=== PATIENT | female | born 1995 | race Hispanic/Latino ===

== ENCOUNTER 2019-04-15 17:32 | Inpatient (IN) | payer MEDICAID, OTHER ==
[~2019-04-15] VITALS: Ht 170.2 cm; Wt 89.3 kg
[2019-04-15 18:42] LABS: BASOPHILS % (AUTO) 0.6 % (0.0-5.0); LYMPHOCYTES % (AUTO) 8.3 % (21.0-51.0); MEAN CORPUSCULAR HEMOGLOBIN 29.3 pg (27.0-33.0); MEAN CORPUSCULAR HGB CONC 34.9 g/dL (32.0-36.0); NEUTROPHILS % (AUTO) 83.1 % (40.0-77.0); NUCLEATED RED BLOOD CELLS 0.1 % (0.0-0.19); PLATELET COUNT (AUTO) 207 K/uL (130-400); RED BLOOD CELL COUNT(AUTO) 4.29 MIL/uL (4.00-5.50); RED CELL DISTRIBUTION WIDTH 12.9 % (11.0-15.5)
[2019-04-15 18:43] LABS: APPEARANCE,URINE Clear (CLEAR); BILIRUBIN,URINE Small (NEGATIVE); COLOR,URINE Dark Yellow (YELLOW); GLUCOSE, URINE (UA) Negative (NEGATIVE); KETONES,URINE Trace mg/dL (NEGATIVE); LEUKOCYTE ESTERASE ,URINE Small (NEGATIVE); NITRATE,URINE Negative (NEGATIVE); OCCULT BLOOD,URINE Negative (NEGATIVE); PROTEIN,URINE POS 2+ mg/dL (NEGATIVE)
[2019-04-15] MEDS ORDERED: SODIUM CHLORIDE 0.9% 1000ML 1,000 ML IV ONE ×2 (18:51→19:12)
[2019-04-15] MEDS ORDERED: ONDANSETRON HCL 4 MG/2 ML VIAL ONE (18:51)
[2019-04-15 18:52] LABS: HCG,QUAL RESULT NEGATIVE (NEGATIVE)
[2019-04-15] MEDS ORDERED: KETOROLAC TROMETHAMINE 30MG/ML ONE (18:52)
[2019-04-15 18:58] LABS: AMPHET/METH SCREEN,URINE NEGATIVE (NEGATIVE); BARBITURATE SCREEN, URINE NEGATIVE (NEGATIVE); BENZODIAZEPINES SCREEN,URINE NEGATIVE (NEGATIVE); CANNABINOID SCREEN,URINE NEGATIVE (NEGATIVE); COCAINE SCREEN,URINE NEGATIVE (NEGATIVE); OPIATE SCREEN,URINE NEGATIVE (NEGATIVE); PHENCYCLIDINE SCREEN,URINE NEGATIVE (NEGATIVE)
[2019-04-15] MEDS ORDERED: CEFTRIAXONE SODIUM 1 GM ONE (19:12)
[2019-04-15 19:18] LABS: CREATININE 0.8 mg/dL (0.5-1.5); POTASSIUM 4.2 mmol/L (3.5-5.1)
[2019-04-15 19:23] LABS: ALBUMIN 3.1 g/dL (3.5-5.0); BILIRUBIN,TOTAL 0.9 mg/dL (0.2-1.0); TOTAL PROTEIN, SERUM 8.2 g/dL (6.0-8.3)
[2019-04-15 19:25] LABS: BACTERIA,URINE Few /HPF (None Seen); RBC,URINE 0-1 /HPF (0-1); SQUAMOUS EPITHELIAL CELL,UR Few /HPF (0-2)
[2019-04-15 19:26] LABS: TRANSITIONAL EPI CELLS,URINE Rare /HPF (None Seen)
[2019-04-15] MEDS ORDERED: IOHEXOL-350 75 ML VIAL IV ONE (19:33)
[2019-04-15 20:15] LABS: INR 0.97 (0.85-1.15); PARTIAL THROMBOPLASTIN TIME 29.9 SEC (26.3-35.5); PROTHROMBIN TIME 10.2 SEC (9.6-11.6)
[2019-04-15] MEDS ORDERED: ONDANSETRON HCL 4 MG/2 ML VIAL IVP PRN (21:15)
[2019-04-15] MEDS ORDERED: CEFTRIAXONE SODIUM 1 GM IVP SCH (21:15)
[2019-04-15] MEDS: SODIUM CHLORIDE 0.9% 1000ML 1,000 ML IV SCH (21:15)
[2019-04-15] MEDS ORDERED: KETOROLAC TROMETHAMINE 15MG/ML IV PRN (21:15)
[2019-04-15 23:00] VITALS: BP 122/71
[2019-04-16 04:00] VITALS: BP 108/61
[2019-04-16 05:37] LABS: BASOPHILS % (AUTO) 0.3 % (0.0-5.0); EOSINOPHILS % (AUTO) 1.1 % (0.0-8.0); HEMATOCRIT 31.4 % (36-48); LYMPHOCYTES % (AUTO) 10.6 % (21.0-51.0); MEAN CORPUSCULAR HEMOGLOBIN 29.4 pg (27.0-33.0); MEAN CORPUSCULAR HGB CONC 34.6 g/dL (32.0-36.0); MEAN CORPUSCULAR VOLUME 85.2 fL (79-99); MONOCYTES % (AUTO) 9.2 % (3.0-13.0); NEUTROPHILS % (AUTO) 78.8 % (40.0-77.0); NUCLEATED RED BLOOD CELLS 0.1 % (0.0-0.19); PLATELET COUNT (AUTO) 187 K/uL (130-400); RED BLOOD CELL COUNT(AUTO) 3.69 MIL/uL (4.00-5.50); RED CELL DISTRIBUTION WIDTH 12.9 % (11.0-15.5); WHITE BLOOD COUNT (AUTO) 14.3 K/uL (4.8-10.8)
[2019-04-16 05:52] LABS: ALBUMIN 2.3 g/dL (3.5-5.0); BILIRUBIN,TOTAL 0.8 mg/dL (0.2-1.0); CREATININE 0.8 mg/dL (0.5-1.5); POTASSIUM 3.8 mmol/L (3.5-5.1); TOTAL PROTEIN, SERUM 6.4 g/dL (6.0-8.3)
[2019-04-16 08:00] VITALS: BP 103/66
[2019-04-16] MEDS: FAMOTIDINE/PF 20 MG/2 ML VIAL IV SCH ×2 (08:46→22:03)
[2019-04-16] MEDS: SODIUM CHLORIDE 0.9% 1000ML 1,000 ML IV SCH (08:46)
[2019-04-16] MEDS ORDERED: ORAL CONTRACEPTIVE PO (10:52)
[2019-04-16 16:57] VITALS: BP 111/70
--- NOTE | 2019-04-16 17:15 | NUR ---
INITIAL MET W PT AND SISTER IN LAW. PT RECENTLY MOVED TO [place] WITH HER YOUNG SON, LIVES ON PROPERTY OF HER BROTHER, FAMILY CLOSE BY, INDP NO DME, NO CLINIC, UNINSURED, [employer] PENDING Addendum: 04/16/19 at 1859 by SHIRA SHANNON RN CM Amended: Links added.
[2019-04-16] MEDS ORDERED: CEFTRIAXONE SODIUM 1 GM IVP SCH (17:30)
[2019-04-16] MEDS: CEFTRIAXONE SODIUM 1 GM IVP SCH ×2 (18:32→22:02)
[2019-04-16 20:00] VITALS: BP 113/75
[2019-04-17] VITALS: BP 107/63
[2019-04-17 04:00] VITALS: BP 117/75
[2019-04-17 05:44] LABS: BASOPHILS % (AUTO) 0.3 % (0.0-5.0); EOSINOPHILS % (AUTO) 4.4 % (0.0-8.0); HEMATOCRIT 30.4 % (36-48); LYMPHOCYTES % (AUTO) 14.6 % (21.0-51.0); MEAN CORPUSCULAR HEMOGLOBIN 29.4 pg (27.0-33.0); MEAN CORPUSCULAR HGB CONC 34.8 g/dL (32.0-36.0); MEAN CORPUSCULAR VOLUME 84.6 fL (79-99); MONOCYTES % (AUTO) 7.5 % (3.0-13.0); NEUTROPHILS % (AUTO) 73.2 % (40.0-77.0); PLATELET COUNT (AUTO) 245 K/uL (130-400); RED BLOOD CELL COUNT(AUTO) 3.59 MIL/uL (4.00-5.50); RED CELL DISTRIBUTION WIDTH 12.8 % (11.0-15.5); WHITE BLOOD COUNT (AUTO) 12.7 K/uL (4.8-10.8)
[2019-04-17 05:55] LABS: CREATININE 0.8 mg/dL (0.5-1.5); POTASSIUM 3.7 mmol/L (3.5-5.1)
[2019-04-17 08:00] VITALS: BP 135/78
[2019-04-17] MEDS: CEFTRIAXONE SODIUM 1 GM IVP SCH (08:48)
[2019-04-17] MEDS: FAMOTIDINE/PF 20 MG/2 ML VIAL IV SCH (08:48)
[2019-04-17] MEDS ORDERED: ASCORBIC ACID 500 MG TAB PO SCH (09:15)
[2019-04-17] MEDS ORDERED: FERROUS SULFATE 325 MG TABLET.DR PO SCH (09:15)
[2019-04-17] MEDS ORDERED: LEVO500T2 PO (10:41)
[2019-04-17] MEDS ORDERED: FERR324T4 PO (10:41)
[2019-04-17] MEDS ORDERED: ASCO500T9 PO (10:41)
[2019-04-17] MEDS ORDERED: IBUP-1493 PO (10:41)
[2019-04-17 12:10] VITALS: BP 119/70
--- NOTE | 2019-04-17 14:35 | NUR ---
PATIENT GIVEN DISCHARGE INSTRUCTION AND VERBALIZED UNDERSTANDING ASKING TO SPEAK TO CASE MANAGEMENT FOR AIDE WITH HER MEDICATIONS . [facility] COMING UP TO TALK TO PATIENT. IV REMOVED AND MEDICATIONS REVIEWED. DISCHARGE PENDING VISIT FROM [facility]. QUESTIONS ABOUT COST AND PAYMENT
--- NOTE | 2019-04-17 15:48 | NUR ---
RD NOTIFICATION DX: ACUTE PYELONEPHRITIS. HX: ASTHMA, SMOKES CIGARETTES 5X/D. DIET: REGULAR. PO 100% AND HAS GOOD APPETITE PER PT. SKIN: INTACT, NO EDEMA. PT NO LONGER EXPERIENCING ABDOMINAL PAIN. PT UNABLE TO EAT X2DAYS PRIOR TO ADMISSION DUE TO PAIN. PO IMPROVED AND APPETITE IS GOOD PER PT. LBM: 04/15. PT WILL BE D/C SOON. RD RECOMMENDS TO CONTINUE CURRENT DIET. PLEASE NOTIFY RD IF ANY OTHER DIETARY CONCERNS ARISE. THANK YOU. Addendum: 04/17/19 at [address] Amended: Links added.
== END 2019-04-17 16:30 | disposition home or self-care (01) | DRG 463 ==
LOC: EDH 17:32 → EDHIP 17:33 → 3BH 22:22
PROVIDERS: ADMIT Internal Medicine; ATTEND Internal Medicine
DX: N10 Acute pyelonephritis (principal); K76.0 Fatty (change of) liver, not elsewhere classified; R00.0 Tachycardia, unspecified; R03.0 Elevated blood-pressure reading, without diagnosis of hypertension
CPT/HCPCS: 36415; 71045; 74176; 76705; 80048; 80053; 80305; 81001; 81025; 83605; 83690; 84484; 85025; 85610; 85730; 87040; 87077; 87088; 87186; 87804; G0378; J0696; J1885; J2405; J3490; J7030; Q2035; Q9967

== ENCOUNTER 2024-08-28 13:14 | Emergency (ER) | payer MEDICAID ==
[~2024-08-28] VITALS: Ht 167.6 cm; Wt 102.1 kg
[~2024-08-28 13:14] MED LIST: ASCO500T20 PO; FERR324T4 PO; IBUP-1493 PO; LEVO500T2 PO; ORAL CONTRACEPTIVE PO
[2024-08-28 14:11] VITALS: BP 123/78; PULSE 102; RESP 18; TEMP 99.1; O2SAT 99
[2024-08-28 16:52] LABS: BASOPHILS # (AUTO) 0.07 K/uL (0.00-0.20); BASOPHILS % (AUTO) 0.6 % (0.0-5.0); EOSINOPHILS # (AUTO) 0.31 K/uL (0.00-0.70); EOSINOPHILS % (AUTO) 2.5 % (0.0-8.0); HEMATOCRIT 39.6 % (36-48); IMMATURE GRANULOCYTE ABSOLUTE 0.05 K/uL (0-1); LYMPHOCYTES # (AUTO) 2.8 K/uL (1.0-4.8); LYMPHOCYTES % (AUTO) 22.6 % (21.0-51.0); MEAN CORPUSCULAR HEMOGLOBIN 29.2 pg (27.0-33.0); MEAN CORPUSCULAR HGB CONC 34.1 g/dL (32.0-36.0); MEAN CORPUSCULAR VOLUME 85.7 fL (79-99); MONOCYTES # (AUTO) 0.6 K/uL (0.1-1.0); MONOCYTES % (AUTO) 4.5 % (3.0-13.0); NEUTROPHILS # (AUTO) 8.5 K/uL (1.8-7.7); NEUTROPHILS % (AUTO) 69.4 % (40.0-77.0); PLATELET COUNT (AUTO) 201 K/uL (130-400); RED BLOOD CELL COUNT(AUTO) 4.62 MIL/uL (4.00-5.50); RED CELL DISTRIBUTION WIDTH 12.2 % (11.0-15.5); WHITE BLOOD COUNT (AUTO) 12.2 K/uL (4.8-10.8)
[2024-08-28 17:01] LABS: CREATININE 0.7 mg/dL (0.5-1.0); POTASSIUM 4.2 mmol/L (3.5-5.1)
[2024-08-28] MEDS ORDERED: MAGIC PO (17:07)
--- NOTE | 2024-08-28 17:11 | ERN ---
General Chief Complaint: Tongue Swelling/Injury Stated Complaint: DIZZY, FAINTING Time Seen by MD: 13:23 Time Seen by Midlevel: 13:23 Source: patient History of Present Illness Initial Comments Patient is a 29-year-old female with no significant past medical history presenting to the emergency department with two complaints. Her primary concern is that for the last two weeks she has been having episodes of dizziness. These episodes are intermittent in nature and usually last a couple of seconds and resolve on their own. The other complaint that she was having is that she was noticed a small "lines" in her tongue that she was never noticed before. She does report mild pain to the area but denies any other symptoms. Denies any so re throat, fever, chills, or any other symptoms at this time. She does report having history of anemia and has not been taking iron supplementation as directed. Allergies: Coded Allergies: No Known Allergies (Verified Allergy, Unknown, 04/15/19) iodine (Unverified Allergy, Unknown, 04/15/19) shellfish derived (Unverified Allergy, Unknown, 04/15/19) Home Meds Active Scripts Lidocaine HCl (Magic Mouthwash [Maalox/Lidocaine/Nystatin]) 200 Mg-200 Mg-20 Mg/5 Ml Soln, 15 ML PO TID for 7 Days, #355 ML 0 Refills Prov:PARAM RUSSELL 08/28/24 Ibuprofen (Motrin/Advil) 800 Mg Tab, 800 MG PO TID for 5 Days, #15 TAB Prov:LEXA TUBBS Jr., MD 04/17/19 Levofloxacin (Levaquin) 500 Mg Tablet, 500 MG PO DAILY for 10 Days, #10 TAB Prov:LXEA TUBBS Jr., MD 04/17/19 Ascorbic Acid (Vitamin C) 500 Mg Tablet, 500 MG PO DAILY for 30 Days, #30 TAB Prov:LEXA TUBBS Jr., MD 04/17/19 Ferrous Sulfate (Ferrous Sulfate) 324 Mg Tablet.dr, 325 MG PO DAILY for 30 Days, #30 TAB Prov:LEXA TUBBS Jr., MD 04/17/19 Reported Medications [Oral Contraceptive] No Conflict Check, PO DAILY 04/16/19 Past Medical History Past Medical History: No Pertinent History Past Surgical History: Appendectomy, Cholecystectomy ROS Dictation CONSTITUTIONAL: Negative except for HPI HEAD/FACE: Negative except for HPI EENT: Negative except for HPI RESPIRATORY: Negative except for HPI GASTROINTESTINAL/ABDOMINAL: Negative except for HPI GENITOURINARY: Negative except for HPI MUSCULOSKELETAL: Negative except for HPI INTEGUMENTARY: Negative except for HPI NEUROLOGICAL/PSYCH: Negative except for HPI HEMATOLOGIC/LYMPHATIC: Negative except for HPI All Systems Negative, Except as noted above. 13 point review of systems assessed and all negative except for above. Physical Exam Physical Exam Dictation Vital Signs reviewed General Appearance: Alert, oriented x 3, no acute distress, well developed, no urished. Head and Face: non-traumatic. Eyes: PERRL, pink conjunctivas, eyelid no trauma, anterior chamber with arcus senilis. Ears: Pinnas intact and no signs of trauma or erythema ear canals clear and no discharge TM no erythema Nose: No discharge, no bleeding. Oropharynx: Mouth normal, tongue pink, pharynx clear,no erythema, tonsils no exudates, no abscesses noted, mucous m embrane moist Neck: Supple, non-tender, no thyromegaly, no masses, no JVD, no bruits Breast:Deferred Chest:No tenderness, no crepitus, no paradoxical movement, no retractions Lungs:Clear, well-ventilated, symmetric, no rales, no wheezing, no rhonchi, no stridor, good breath sounds bilaterally Heart: Regular rate, regular rhythm, no murmur, no gallops Vascular: no peripheral edema, Abdomen: Soft, positive bowel sounds, nondistended, no guarding, nontender, no rebound, no masses no hepatomegaly, no splenomegaly, no White's sign, no hernias. Rectal: Deferred Genital: Deferred Neurological: Normal speech, motor function intact, sensory function intact Musculoskeletal: Neck nontender, full range of motion, back nontender, full range of motion, Extremities: nontender, full range of motion Skin: Color pink, dry, no turgor, no rash, no lacerations, no abrasions, no contusions. Lymphatic: Deferred Results Laboratory and Microbiology Lab and Micro Result Laboratory Tests Test 08/28/24 16:20 White Blood Count 12.2 K/uL (4.8-10.8) H Red Blood Count 4.62 MIL/uL (4.00-5.50) Hemoglobin 13.5 g/dL (12.0-16.0) Hematocrit 39.6 % (36-48) Mean Corpuscular Volume 85.7 fL (79-99) Mean Corpuscular Hemoglobin 29.2 pg (27.0-33.0) Mean Corpuscular Hemoglobin Concent 34.1 g/dL (32.0-36.0) Red Cell Distribution Width 12.2 % (11.0-15.5) Platelet Count 201 K/uL (130-400) Mean Platelet Volume 12.1 fL (7.5-10.5) H Immature Granulocyte % (Auto) 0.4 % (0-1) Neutrophils (%) (Auto) 69.4 % (40.0-77.0) Lymphocytes (%) (Auto) 22.6 % (21.0-51.0) Monocytes (%) (Auto) 4.5 % (3.0-13.0) Eosinophils (%) (Auto) 2.5 % (0.0-8.0) Basophils (%) (Auto) 0.6 % (0.0-5.0) Neutrophils # (Auto) 8.5 K/uL (1.8-7.7) H Lymphocytes # (Auto) 2.8 K/uL (1.0-4.8) Monocytes # (Auto) 0.6 K/uL (0.1-1.0) Eosinophils # (Auto) 0.31 K/uL (0.00-0.70) Basophils # (Auto) 0.07 K/uL (0.00-0.20) Absolute Immature Granulocyte (auto 0.05 K/uL (0-1) Nucleated Red Blood Cells 0.0 % (0.0-0.19) Sodium Level 139 mmol/L (136-145) Potassium Level 4.2 mmol/L (3.5-5.1) Chloride Level 100 mmol/L (101-111) L Carbon Dioxide Level 32 mmol/L (21-32) Blood Urea Nitrogen 7 mg/dL (7-18) Creatinine 0.7 mg/dL (0.5-1.0) Glomerular Filtration Rate Calc 119 mL/min (>90) Random Glucose 99 mg/dL (70-105) Total Calcium 9.2 mg/dL (8.5-10.1) Serum Test, Qualitative NEGATIVE (NEGATIVE) MDM MDM: Patient is a 29-year-old female with no significant past medical history presenting to the emergency department with two complaints. Her primary concern is that for the last two weeks she has been having episodes of dizziness. These episodes are intermittent in nature and usually last a couple of seconds and resolve on their own. The other complaint that she was having is that she was noticed a small "lines" in her tongue that she was never noticed before. She does report mild pain to the area but denies any other symptoms. Denies any sor e throat, fever, chills, or any other symptoms at this time. She does report having history of anemia and has not been taking iron supplementation as directed. On physical examination the patient is in no acute distress. Tongue examination is unremarkable there are no lesions, erythema, or signs of infection. Posterior oropharynx is clear with no signs of erythema or tonsillar exudates. No signs of peritonsillar abscess. I obtain basic labs to rule out electrolyte derangements and anemia given her alleged episodes of dizziness. Her neurological examination is unremarkable. She has a GCS of 15. CBC and chemistries are stable. Patient will need to follow up with primary care doctor for further evaluation of dizziness. With regards to her tongue magic mouthwash will be prescribed for supportive management. However, her physical examination is unremarkable. Patient was stable for discharge Differential diagnosis: Anemia, electrolyte abnormality, dehydration There are no social concerns with this patient. Prescription drug management Prescriptions will include: Magic mouthwash Medical management and examination interpretation discussions were had by me with other qualified healthcare professionals as indicated for the patient's care. ED Course Orders Procedure Category Date Status Time Cbc With Differential LAB 08/28/24 Complete 14:49 Basic Metabolic Panel LAB 08/28/24 Complete 14:49 Testing, LAB 08/28/24 Complete Serum Hcg 14:49 Vital Signs Date Time Temp Pulse Resp B/P (MAP) Pulse Ox O2 Delivery O2 Flow Rate FiO2 08/28/24 14:11 99.1 102 18 123/78 99 Room Air* 0 21 08/28/24 14:03 98.8 102 18 123/78 99 Room Air 0 DX & DISP Disposition: Discharge Departure Impression: Primary Impression: Dizziness, nonspecific Additional Impression: Painful tongue Condition: Stable Scripts Lidocaine HCl (Magic Mouthwash [Maalox/Lidocaine/Nystatin]) 200 Mg-200 Mg-20 Mg/5 Ml Soln 15 ML PO TID for 7 Days, #355 ML 0 Refills Prov: PARAM RUSSELL 08/28/24 Additional Instructions: Your blood work today is unremarkable. Your hemoglobin levels are normal. Your electrolytes are normal. Your test was negative. I have given you a prescription for an oral mouthwash which should help improve your tongue pain. You need to follow up with the primary care doctor for further evaluation. Referrals: SELF,REFERRAL (PCP) I have reviewed the case, and I agree with, Diagnosis and Plan I performed the substantive portion of the visit. I have reviewed and personally made and approve the management plan that is documented in the note by myself or the NAYELY. I acknowledge for responsibility for the patient's management plan. PARAM RUSSELL Aug 28, 2024 17:11 JAIME AWAN DO Aug 28, 2024 18:43
== END 2024-08-28 17:17 | disposition home or self-care (01) ==
LOC: EDH 13:14
DX: R42 Dizziness and giddiness (principal); K14.6 Glossodynia; Z79.1 Long term (current) use of non-steroidal anti-inflammatories (NSAID); Z79.899 Other long term (current) drug therapy; Z88.8 Allergy status to other drugs, medicaments and biological substances; Z90.49 Acquired absence of other specified parts of digestive tract; Z91.041 Radiographic dye allergy status
CPT/HCPCS: 36415; 80048; 84703; 85025; 99283

== ENCOUNTER 2025-01-28 12:45 | Emergency (ER) | payer MEDICAID ==
[~2025-01-28] VITALS: Ht 167.6 cm; Wt 101.6 kg
[~2025-01-28 12:45] MED LIST changes: +MAGIC PO
--- NOTE | 2025-01-28 12:53 | ERN ---
ED Note History of Present Illness Stated Complaint: PELVIC CRAMPING Chief Complaint: Pelvic Pain Time Seen by MD: 12:46 Dictation: PATIENT IS A 29-YEAR-OLD FEMALE COMING IN TODAY STATES SHE HAD HE. ON SUNDAY AND SHE HAD VAGINAL BLEEDING AND THEN IT STOPPED. SHE STATES NORMALLY HER. /SEVERAL DAYS. SHE STATES SHE IS SEXUALLY ACTIVE NO PROTECTION DOES NOT HAVE AN RAW MATERIAL PLANNER DOCTOR HAS NOT HAVE A PRIMARY CARE DOCTOR. NO FEVER NO CHILLS NO NAUSEA VOMITING. STATES SHE IS CURRENTLY NOT BLEEDING. Allergies: Coded Allergies: No Known Allergies (Verified Allergy, Unknown, 04/15/19) iodine (Unverified Allergy, Unknown, 04/15/19) shellfish derived (Unverified Allergy, Unknown, 04/15/19) Home Meds Active Scripts Lidocaine HCl (Magic Mouthwash [Maalox/Lidocaine/Nystatin]) 200 Mg-200 Mg-20 Mg/5 Ml Soln, 15 ML PO TID for 7 Days, #355 ML 0 Refills Prov:PARAM RUSSELL 08/28/24 Ibuprofen (Motrin/Advil) 800 Mg Tab, 800 MG PO TID for 5 Days, #15 TAB Prov:LEXA TUBBS Jr., MD 04/17/19 Levofloxacin (Levaquin) 500 Mg Tablet, 500 MG PO DAILY for 10 Days, #10 TAB Prov:LEXA TUBBS Jr., MD 04/17/19 Ascorbic Acid (Vitamin C) 500 Mg Tablet, 500 MG PO DAILY for 30 Days, #30 TAB Prov:LEXA TUBBS Jr., MD 04/17/19 Ferrous Sulfate (Ferrous Sulfate) 324 Mg Tablet.dr, 325 MG PO DAILY for 30 Days, #30 TAB Prov:LEXA TUBBS Jr., MD 04/17/19 Reported Medications [Oral Contraceptive] No Conflict Check, PO DAILY 04/16/19 Past Medical History Past Medical History: No Pertinent History Surgical History: Appendectomy, Cholecystectomy RN Note Reviewed/Agreed w/PFSH: Yes Review of System Dictation CONSTITUTIONAL: NEGATIVE EXCEPT FOR HPI HEAD/FACE: NEGATIVE EXCEPT FOR HPI EENT: NEGATIVE EXCEPT FOR HPI RESPIRATORY: NEGATIVE EXCEPT FOR HPI GASTROINTESTINAL/ABDOMINAL: NEGATIVE EXCEPT FOR HPI GENITOURINARY: NEGATIVE EXCEPT FOR HPI PELVIC CRAMPING MUSCULOSKELETAL: NEGATIVE EXCEPT FOR HPI INTEGUMENTARY: NEGATIVE EXCEPT FOR HPI NEUROLOGICAL/PSYCH: NEGATIVE EXCEPT FOR HPI HEMATOLOGIC/LYMPHATIC: NEGATIVE EXCEPT FOR HPI ALL SYSTEMS NEGATIVE, EXCEPT NOTED ABOVE. 13 POINT REVIEW OF SYSTEMS ASSESSED AND ALL NEGATIVE EXCEPT FOR ABOVE. Initial Vital Sign VS Vital Signs Date Time Temp Pulse Resp B/P (MAP) Pulse Ox O2 Delivery O2 Flow Rate FiO2 01/28/25 12:46 99.0 81 20 130/83 99 Room Air 01/28/25 12:57 0 21 Physical Exam Dictation VITAL SIGNS REVIEWED GENERAL APPEARANCE: ALERT, ORIENTED X 3, NO ACUTE DISTRESS, WELL DEVELOPED, NOURISHED. OBESE HEAD AND FACE: NON-TRAUMATIC. EYES: PERRL, PINK CONJUNCTIVAS, EYELID NO TRAUMA, ANTERIOR CHAMBER WITH ARCUS SENILIS. EARS: PINNAS INTACT AND NO SIGNS OF TRAUMA OR ERYTHEMA EAR CANALS CLEAR AND NO DISCHARGE TM NO ERYTHEMA NOSE: NO DISCHARGE, NO BLEEDING. OROPHARYNX: MOUTH NORMAL, TONGUE PINK, PHARYNX CLEAR,NO ERYTHEMA, TONSILS NO EXUDATES, NO ABSCESSES NOTED, MUCOUS MEMBRANE MOIST NECK: SUPPLE, NON-TENDER, NO THYROMEGALY, NO MASSES, NO JVD, NO BRUITS BREAST:DEFERRED CHEST:NO TENDERNESS, NO CREPITUS, NO PARADOXICAL MOVEMENT, NO RETRACTIONS LUNGS:CLEAR, WELL-VENTILATED, SYMMETRIC, NO RALES, NO WHEEZING, NO RHONCHI, NO STRIDOR, GOOD BREATH SOUNDS BILATERALLY HEART: REGULAR RATE, REGULAR RHYTHM, NO MURMUR, NO GALLOPS VASCULAR: NO PERIPHERAL EDEMA, ABDOMEN: SOFT, POSITIVE BOWEL SOUNDS, NONDISTENDED, NO GUARDING, NONTENDER, NO REBOUND, NO MASSES NO HEPATOMEGALY, NO SPLENOMEGALY, NO BEYER'S SIGN, NO HERNIAS. RECTAL: DEFERRED GENITAL: DEFERRED NEUROLOGICAL: NORMAL SPEECH, MOTOR FUNCTION INTACT, SENSORY FUNCTION INTACT MUSCULOSKELETAL: NECK NONTENDER, FULL RANGE OF MOTION, BACK NONTENDER, FULL RANGE OF MOTION, EXTREMITIES: NONTENDER, FULL RANGE OF MOTION SKIN: COLOR PINK, DRY, NO TURGOR, NO RASH, NO LACERATIONS, NO ABRASIONS, NO CONTUSIONS. LYMPHATIC: DEFERRED Results (Laboratory/Radiology) Laboratory/Radiology Laboratory Tests Test 01/28/25 12:06 01/28/25 13:32 Urine Color LIGHT-ORANGE (YELLOW) Urine Appearance TURBID (CLEAR) Urine pH 5.5 (5.0-8.0) Urine Specific [place] 1.029 (1.001-1.031) Urine Protein 50 mg/dL (NEGATIVE) H Urine Glucose (UA) NEGATIVE mg/dL (NEGATIVE) Urine Ketones NEGATIVE mg/dL (NEGATIVE) Urine Occult Blood LARGE (NEGATIVE) H Urine Nitrate NEGATIVE (NEGATIVE) Urine Bilirubin NEGATIVE mg/dL (NEGATIVE) Urine Urobilinogen 0.2 mg/dL (0.2-1.0) Urine Leukocyte Esterase 500 Kamar/uL (NEGATIVE) H Urine RBC 26-50 /HPF (0-1) H Urine WBC 51-100 /HPF (0-1) H Urine Squamous Epithelial Cells Many /HPF (0-2) H Urine Bacteria Moderate /HPF (None Seen) H Serum Test, Qualitative NEGATIVE (NEGATIVE) Labs Reviewed?: Yes ED Course ED Course Orders Procedure Category Date Status Time Testing, LAB 01/28/25 Complete Serum Hcg 12:49 Urinalysis Profile LAB 01/28/25 Complete 12:49 Culture Urine JULIA 01/28/25 In Process 13:27 Vital Signs Date Time Temp Pulse Resp B/P (MAP) Pulse Ox O2 Delivery O2 Flow Rate FiO2 01/28/25 12:57 98.6 81 20 99 Room Air* 0 21 01/28/25 12:46 99.0 81 20 130/83 99 Room Air Medical Decision Making MDM 1450/medical discharge making based on urinalysis and serum test. Patient is aware she is Discharged home with a acute cystitis with hematuria on Augmentin Told see her primary care doctor DX & DISP Disposition: Discharge Departure Impression: Primary Impression: Acute cystitis with hematuria Additional Impression: Late menses Condition: Stable Scripts Amoxicillin/Potassium Clav (Amox Tr-K Clv 875-125 mg Tab) 875 Mg-125 Mg Tablet 1 EACH PO BID for 5 Days, #10 TAB 0 Refills Prov: NORM STUBBS NP 01/28/25 Additional Instructions: Follow-up with primary care provider in 1 to 2 days. Take medications as directed here in the emergency room. Okay to continue home medications unless otherwise discussed during your visit in the emergency room today. Return to your nearest emergency room if symptoms worsen or if there is no improvement. Call 911 if you need immediate assistance. Take Tylenol or Motrin [id number] as needed and if no contraindications are present. Increase oral hydration. A wound culture or urine culture was ordered here in the emergency room department please follow-up with primary care provider and advise them to get repeat ports from our facility. If you had any Maikel wrap/splints that were applied here, please do not remove them until you see your primary care or specialty. Increase water intake., take antibiotics as directed until gone., follow up with your primary care doctor in 1-2 days. Referrals: SELF,REFERRAL (PCP) Time of Disposition: 14:50 I have reviewed the case, and I agree with, Diagnosis and Plan NORM STUBBS ENGRAVING PRESS OPERATOR Jan 28, 2025 12:53
[2025-01-28 13:19] LABS: APPEARANCE,URINE TURBID (CLEAR); GLUCOSE, URINE (UA) NEGATIVE (NEGATIVE); LEUKOCYTE ESTERASE ,URINE 500 Leu/uL (NEGATIVE); NITRATE,URINE NEGATIVE (NEGATIVE); OCCULT BLOOD,URINE LARGE (NEGATIVE)
[2025-01-28 13:26] LABS: ADD UA MICROSCOPIC YES
[2025-01-28 13:28] LABS: SQUAMOUS EPITHELIAL CELL,UR Many /HPF (0-2)
[2025-01-28] MEDS ORDERED: AMOX1TAB16 PO (14:51)
[2025-01-28 15:02] VITALS: BP 128/80; PULSE 77; RESP 20; TEMP 98.6; O2SAT 99
== END 2025-01-28 15:04 | disposition home or self-care (01) ==
LOC: EDH 12:45
DX: N30.01 Acute cystitis with hematuria (principal); Z79.1 Long term (current) use of non-steroidal anti-inflammatories (NSAID); Z88.8 Allergy status to other drugs, medicaments and biological substances; Z90.49 Acquired absence of other specified parts of digestive tract
CPT/HCPCS: 36415; 81001; 84703; 87086; 99283